=== PATIENT | male | born 1940 | race Caucasian/White ===

== ENCOUNTER 2018-11-05 16:32 | Emergency (ER) | payer OTHER ==
[~2018-11-05] VITALS: Ht 182.9 cm; Wt 75.7 kg
== END 2018-11-05 20:06 | disposition home or self-care (01) ==
LOC: ER 16:32
DX: N17.8 Other acute kidney failure (principal); R60.0 Localized edema; K57.30 Diverticulosis of large intestine without perforation or abscess without bleeding; I70.0 Atherosclerosis of aorta; I70.1 Atherosclerosis of renal artery; E87.5 Hyperkalemia; N40.0 Benign prostatic hyperplasia without lower urinary tract symptoms

== ENCOUNTER 2018-11-10 07:37 | Outpatient (CLI) | payer OTHER | END 2018-11-10 13:55 | disposition home or self-care (01) | LOC: LAB 07:37 | DX: R18.8 Other ascites (principal) ==

== ENCOUNTER 2019-01-07 06:04 | Emergency (ER) | payer OTHER ==
[~2019-01-07] VITALS: Ht 182.9 cm; Wt 81.6 kg
[2019-01-07] MEDS ORDERED: PLAVIX75 MG PO (06:17)
== END 2019-01-07 11:27 | disposition home or self-care (01) ==
LOC: ER 06:04
DX: J44.1 Chronic obstructive pulmonary disease with (acute) exacerbation (principal); J45.998 Other asthma